=== PATIENT | male | born 1965 | race Caucasian/White ===

== ENCOUNTER 2025-03-12 06:59 | Day surgery (SDC) | payer BC ==
[~2025-03-12 06:59] MED LIST: LIDOCAINE 1% (10MG/ML) FOR IV START INTRADERMA PRN
[2025-03-12] MEDS ORDERED: ONDANSETRON 4 MG/2 ML VIAL IVP PRN (07:00)
[2025-03-12 07:35] VITALS: TEMP 98
[2025-03-12] MEDS: IV FLUID CONTINUATION 1,000 ML IV ONE (07:35)
[2025-03-12] MEDS: LACTATED RINGERS 1,000 ML IV SCH (07:35)
[2025-03-12] MEDS ORDERED: LIDOCAINE 1% INJ 10MG/ML (20 ML MDV) ONE (08:10)
[2025-03-12] MEDS ORDERED: PROPOFOL 10 MG/ML 20 ML VIAL IV ONE (08:10)
--- NOTE | 2025-03-12 08:16 | P.GSHP ---
History of Present Illness H&P Date: 03/12/25 Chief Complaint: Abnormal stool test 60-year-old male had recent abnormal Cologuard. No bowel complaints. No family history of colon cancer or polyps. Never had a colonoscopy Past Medical History Past Medical History: Hyperlipidemia, Hypertension History of Any Multi-Drug Resistant Organisms: None Reported Past Surgical History: Hernia Repair Additional Past Surgical History / Comment(s): umbilical hernia repair Past Anesthesia/Blood Transfusion Reactions: No Reported Reaction Smoking Status: Former smoker - Past Family History Father Family Medical History: Cancer Additional Family Medical History / Comment(s): liver cancer Sister(s) Family Medical History: Cancer Additional Family Medical History / Comment(s): ovarain cancer. all siblings: htn Medications and Allergies Home Medications Medication Instructions Recorded Confirmed Type Aspirin [Adult Low Dose Aspirin EC] 81 mg PO DAILY 03/11/25 03/12/25 History Multivitamin [Multivitamins Adult 1 tab PO DAILY 03/11/25 03/12/25 History Gummies] Rosuvastatin Calcium 20 mg PO DAILY 03/11/25 03/12/25 History amLODIPine BESYLATE 5 mg PO DAILY 03/11/25 03/12/25 History Allergies Allergy/AdvReac Type Severity Reaction Status Date / Time No Known Allergies Allergy Verified 03/12/25 07:19 Surgical - Exam Vital Signs Temp Pulse Resp BP Pulse Ox 98.0 F 104 H 16 181/89 97 03/12/25 07:23 03/12/25 07:23 03/12/25 07:23 03/12/25 07:23 03/12/25 07:23 Physical exam: General: Well-developed, well-nourished HEENT: Normocephalic, sclerae nonicteric Abdomen: Nontender, nondistended Extremities: No edema Neuro: Alert and oriented Assessment and Plan (1) Abnormal stool test Narrative/Plan: Will proceed with colonoscopy at this time. Current Visit: Yes Status: Acute Code(s): R19.5 - OTHER FECAL ABNORMALITIES SNOMED Code(s): 795487847
--- NOTE | 2025-03-12 08:29 | P.PCN ---
Date of Procedure: 03/12/25 Procedure(s) Performed: PREOPERATIVE DIAGNOSIS: Abnormal stool test POSTOPERATIVE DIAGNOSIS: Mild diverticulosis PROCEDURE: Colonoscopy ANESTHESIA: MAC SURGEON: Earl Payton M.D. SPECIMENS: None ENDOSCOPIC PROCEDURE: The patient was placed on the endoscopy table in the left decubitus position. The Olympus colonoscope was inserted into the anus and passed under direct visualization to the base of the cecum. The appendiceal orifice was visualized. From that point the scope was slowly withdrawn ins pecting all surfaces carefully. There were no neoplastic inflammatory or polypoid lesions throughout the cecum, ascending, transverse, descending, sigmoid and rectum. There was scattered diverticulosis noted. Digital rectal examination was normal. The patient was taken to the recovery room in stable condition per anesthesia guidelines. RECOMMENDATIONS: Resume diet. Repeat colonoscopy 10 years.
[2025-03-12 09:00] VITALS: BP 124/75; PULSE 84; RESP 18
== END 2025-03-12 09:24 | disposition home or self-care (01) ==
LOC: ORWHC2ENDO 06:59
PROVIDERS: ATTEND Surgery
DX: R19.5 Other fecal abnormalities (principal); K57.30 Diverticulosis of large intestine without perforation or abscess without bleeding; E78.5 Hyperlipidemia, unspecified; I10 Essential (primary) hypertension; Z87.891 Personal history of nicotine dependence
CPT/HCPCS: 45378; J2003; J2704